=== PATIENT | female | born 1980 ===

== ENCOUNTER 2022-05-07 06:00 | Outpatient (RCR) | payer OTHER, SELFPAY | END 2022-05-11 23:59 | disposition home or self-care (01) | LOC: MPT 06:00 | PROVIDERS: Visit Provider Plastic Surgery | DX: M54.2 Cervicalgia (principal); M25.511 Pain in right shoulder | CPT/HCPCS: 97110; 97162 ==

== ENCOUNTER 2022-05-12 06:00 | Outpatient (RCR) | payer OTHER, SELFPAY | END 2022-06-11 23:59 | disposition home or self-care (01) | LOC: MPT 06:00 | PROVIDERS: Visit Provider Plastic Surgery | DX: M54.2 Cervicalgia (principal); M25.511 Pain in right shoulder | CPT/HCPCS: 97110; 97140 ==

== ENCOUNTER 2022-06-12 06:00 | Outpatient (RCR) | payer OTHER, SELFPAY | END 2022-07-11 23:59 | disposition home or self-care (01) | LOC: MPT 06:00 | PROVIDERS: Visit Provider Plastic Surgery | DX: M54.2 Cervicalgia (principal); M25.511 Pain in right shoulder | CPT/HCPCS: 97110; 97140; G0283 ==

== ENCOUNTER 2022-07-12 06:00 | Outpatient (RCR) | payer OTHER, SELFPAY | END 2022-07-12 23:59 | disposition home or self-care (01) | LOC: MPT 06:00 | PROVIDERS: Visit Provider Plastic Surgery | DX: M54.2 Cervicalgia (principal); M25.511 Pain in right shoulder | CPT/HCPCS: 97110 ==